=== PATIENT | male | born 1990 | race Caucasian/White ===

== ENCOUNTER 2017-11-12 06:01 | Emergency (ER) | payer OTHER, SELFPAY ==
[2017-11-12 06:08] VITALS: BP 153/85; PULSE 68; RESP 18; TEMP 36.1; O2SAT 99; BMI 29.2
--- NOTE | 2017-11-12 06:17 | ED.BACK ---
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 Patient states he has had lower back pain in the past but has never been this bad. 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 No specific incident that caused the pain to come on just has worsened since then. No urinary symptoms no bowel symptoms no incontinence no fevers. Patient has been on anti-inflammatories in the past. Has had x-rays of his back in the past. Related Data Previous Rx's Medication Instructions Recorded cyclobenzaprine 10 mg PO TID PRN #14 tab 11/12/17 hydrocodone-acetaminophen [[place]] 1 tab PO Q6H PRN #5 tab 11/12/17 meloxicam [Mobic] 7.5 mg PO DAILY #30 tab 11/12/17 Allergies Allergy/AdvReac Type Severity Reaction Status Date / Time No Known Drug Allergies Allergy Verified 11/12/17 06:17 Review of Systems Constitutional Denies fatigue and Denies fever(s) Cardiovascular Denies chest pain and Denies dyspnea Respiratory Denies dyspnea Gastrointestinal Gastrointestinal: Denies change in stool character Genitourinary Denies dysuria, Denies urinary frequency, Denies urinary hesitancy, Denies urinary incontinence and Denies urinary urgency Musculoskeletal Reports back pain, Denies myalgias and Denies arthralgias Integumentary/Breasts Denies lesions and Denies rash Neurologic Comments: Tingling shooting down his left leg Endocrine Denies fatigue Hematologic/Lymphatic Denies easy bleeding and Denies easy bruising [facility] Medical History Pain in lower back (Acute) Surgical History No pertinent past surgical history (Acute) Exam Const General: cooperative, healthy appearing, comfortable, well developed, well groomed and No acute distress Orientation: alert and awake HEN[place] Head: normal to inspection and normocephalic Resp Effort & Inspection: normal respiratory effort Auscultation: clear to auscultation bilaterally Cardio Rate: regular rate Rhythm: regular rhythm GI Inspection: normal to inspection and non-distended Palpation: soft, No firm and No guarding Back/Spine/Pelvis Back: normal to inspection and No CVA tenderness Thoracic/Lumbar Spine: paraspinal tenderness (Left greater than right) and lumbar spinal tenderness Sacroiliac Joints: nontender Skin Lesions: no lesions Rashes: no rashes Neuro General: alert, awake and oriented x3 Cognition: normal cognition Speech: speech normal Extrem General: normal to inspection Psych Appearance: grossly normal and well kempt MDM - Back Pain/Injury MDM Narrative Medical decision making narrative: Patient with no red flag signs concerning for cauda equina, fracture, metastasis, infection. Will hold on any radiologic studies for now. Toradol was given here in the emergency department. Patient was given return precautions. Will send home with symptom treatment to include anti-inflammatories. Patient was instructed he needs to follow up with his medical department. He expressed understanding and agreement with plan. Discharge Plan Departure Patient Disposition: Home, Self-Care Clinical Impression: Lumbar radiculopathy, Strain of lumbar region Instructions: Back Pain (Alternative Therapy), DI for Back Pain With Sciatica, Activity May Be Better then Rest for Low Back Pain Recovery, Exercise May Reduce Risk of Low Back Pain Activity Restrictions/Additional Instructions: Take the medication like we discussed. You do need to contact your medical department for any work-related restrictions and to let them know about the medications your prescribed today. Return to the emergency department for any new symptoms, fevers, problems with urination, problems with having a bowel movement or any other concerning symptoms. Prescriptions: New cyclobenzaprine 10 mg tablet 10 mg PO TID PRN (Reason: muscle spasm) Qty: 14 RF: 0 hydrocodone-acetaminophen [[place]] 5-325 mg tablet 1 tab PO Q6H PRN (Reason: pain) Qty: 5 RF: 0 meloxicam [Mobic] 7.5 mg tablet 7.5 mg PO DAILY Qty: 30 RF: 0
--- NOTE | 2017-11-12 06:23 | ED_ITS ---
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 Patient states he has had lower back pain in the past but has never been this bad. 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 No specific incident that caused the pain to come on just has worsened since then. No urinary symptoms no bowel symptoms no incontinence no fevers. Patient has been on anti-inflammatories in the past. Has had x-rays of his back in the past. Related Data Previous Rx's Medication Instructions Recorded cyclobenzaprine 10 mg PO TID PRN #14 tab 11/12/17 hydrocodone-acetaminophen [[place]] 1 tab PO Q6H PRN #5 tab 11/12/17 meloxicam [Mobic] 7.5 mg PO DAILY #30 tab 11/12/17 Allergies Allergy/AdvReac Type Severity Reaction Status Date / Time No Known Drug Allergies Allergy Verified 11/12/17 06:17 Review of Systems Constitutional Denies fatigue and Denies fever(s) Cardiovascular Denies chest pain and Denies dyspnea Respiratory Denies dyspnea Gastrointestinal Gastrointestinal: Denies change in stool character Genitourinary Denies dysuria, Denies urinary frequency, Denies urinary hesitancy, Denies urinary incontinence and Denies urinary urgency Musculoskeletal Reports back pain, Denies myalgias and Denies arthralgias Integumentary/Breasts Denies lesions and Denies rash Neurologic Comments: Tingling shooting down his left leg Endocrine Denies fatigue Hematologic/Lymphatic Denies easy bleeding and Denies easy bruising [facility] Medical History Pain in lower back (Acute) Surgical History No pertinent past surgical history (Acute) Exam Const General: cooperative, healthy appearing, comfortable, well developed, well groomed and No acute distress Orientation: alert and awake [facility]EN[place] Head: normal to inspection and normocephalic Resp Effort & Inspection: normal respiratory effort Auscultation: clear to auscultation bilaterally Cardio Rate: regular rate Rhythm: regular rhythm GI Inspection: normal to inspection and non-distended Palpation: soft, No firm and No guarding Back/Spine/Pelvis Back: normal to inspection and No CVA tenderness Thoracic/Lumbar Spine: paraspinal tenderness (Left greater than right) and lumbar spinal tenderness Sacroiliac Joints: nontender Skin Lesions: no lesions Rashes: no rashes Neuro General: alert, awake and oriented x3 Cognition: normal cognition Speech: speech normal Extrem General: normal to inspection Psych Appearance: grossly normal and well kempt MDM - Back Pain/Injury MDM Narrative Medical decision making narrative: Patient with no red flag signs concerning for cauda equina, fracture, metastasis, infection. Will hold on any radiologic studies for now. Toradol was given here in the emergency department. Patient was given return precautions. Will send home with symptom treatment to include anti-inflammatories. Patient was instructed he needs to follow up with his medical department. He expressed understanding and agreement with plan. Discharge Plan Departure Patient Disposition: Home, Self-Care Clinical Impression: Lumbar radiculopathy, Strain of lumbar region Instructions: Back Pain (Alternative Therapy), DI for Back Pain With Sciatica, Activity May Be Better then Rest for Low Back Pain Recovery, Exercise May Reduce Risk of Low Back Pain Activity Restrictions/Additional Instructions: Take the medication like we discussed. You do need to contact your medical department for any work-related restrictions and to let them know about the medications your prescribed today. Return to the emergency department for any new symptoms, fevers, problems with urination, problems with having a bowel movement or any other concerning symptoms. Prescriptions: New cyclobenzaprine 10 mg tablet 10 mg PO TID PRN (Reason: muscle spasm) Qty: 14 RF: 0 hydrocodone-acetaminophen [[place]] 5-325 mg tablet 1 tab PO Q6H PRN (Reason: pain) Qty: 5 RF: 0 meloxicam [Mobic] 7.5 mg tablet 7.5 mg PO DAILY Qty: 30 RF: 0
[2017-11-12] MEDS: KETOROLAC 60 MG/2 ML VIAL 30 MG IM (06:24)
== END 2017-11-12 06:37 | disposition home or self-care (01) ==
PROVIDERS: Emergency Provider Emergency Medicine
DX: M54.16 Radiculopathy, lumbar region (principal)
CPT/HCPCS: 96372; 99282; 99283; J1885